=== PATIENT | female | born 1990 | race Caucasian/White ===

== ENCOUNTER 2022-09-22 10:56 | Outpatient (CLI) | payer OTHER | END 2022-09-22 11:48 | disposition home or self-care (01) | LOC: NST 10:56 | PROVIDERS: ATTEND Obstetrics & Gynecology Gynecology | DX: Z34.83 Encounter for supervision of other normal pregnancy, third trimester (principal) ==

== ENCOUNTER 2022-10-06 11:41 | Inpatient (IN) | payer OTHER ==
[~2022-10-06] VITALS: Ht 165.1 cm; Wt 77.1 kg
[2022-10-07] MEDS ORDERED: PRENATAL + DHA1 EAC1 PO (08:33)
== END 2022-10-09 12:53 | DRG 807 ==
LOC: LDR 10-07 06:45 → OB/GYN 10-07 13:00
PROVIDERS: ADMIT Obstetrics & Gynecology Gynecology; ATTEND Obstetrics & Gynecology Gynecology
PROC: 10E0XZZ Delivery of Products of Conception, External Approach (ICD-10-PCS; principal; 2022-10-07)
PROC: 4A1HXCZ Monitoring of Products of Conception, Cardiac Rate, External Approach (ICD-10-PCS; 2022-10-07)
DX: O36.5930 Maternal care for other known or suspected poor fetal growth, third trimester, not applicable or unspecified (principal); Z37.0 Single live birth; Z3A.38 38 weeks gestation of pregnancy; Z20.822 Contact with and (suspected) exposure to COVID-19

== ENCOUNTER 2025-03-31 13:28 | Outpatient (CLI) | payer OTHER ==
[~2025-03-31 13:28] MED LIST: PRENATAL + DHA1 EAC1 PO
== END 2025-03-31 14:54 | disposition home or self-care (01) ==
LOC: NST 13:28
PROVIDERS: ATTEND Obstetrics & Gynecology Gynecology
DX: Z34.83 Encounter for supervision of other normal pregnancy, third trimester (principal)

== ENCOUNTER 2025-04-15 13:45 | Outpatient (CLI) | payer OTHER | END 2025-04-15 14:53 | disposition home or self-care (01) | LOC: NST 13:45 | PROVIDERS: ATTEND Obstetrics & Gynecology Maternal & Fetal Medicine | DX: Z34.83 Encounter for supervision of other normal pregnancy, third trimester (principal) ==

== ENCOUNTER 2025-04-17 14:30 | Inpatient (IN) | payer OTHER ==
[~2025-04-17] VITALS: Ht 165.1 cm; Wt 73.0 kg
[2025-04-23] MEDS ORDERED: RINGERS SOLUTION,LACTATED 1,000 ML IV SCH (06:30)
[2025-04-23] MEDS ORDERED: AMPICILLIN SODIUM 2,000 MG VIAL IV ONE (06:30)
[2025-04-23] MEDS ORDERED: OXYTOCIN 500 ML IV ONE (07:30)
[2025-04-23 08:32] LABS: BASO % 0.2 % (0.1-1.2); EOS # 0.19 (0.04-0.54); EOS % 1.9 % (0.7-7.0); LYMPH # 1.90 (1.18-3.74); LYMPH % 19.3 % (19.3-53.1); MEAN PLATELET VOLUME 10.80 fl (9.4-12.4); MONO # 0.64 (0.24-0.82); MONO % 6.5 % (4.7-12.5); NEUT # 7.04 (1.56-6.13); NEUT % 71.8 % (34.0-71.1); RED CELL DISTRIBUTION WIDTH 13.3 % (11.6-14.4)
[2025-04-23 08:55] LABS: INR < 0.93
[2025-04-23] MEDS ORDERED: AMPICILLIN SODIUM 1,000 MG VIAL IV SCH (09:00)
[2025-04-23 09:31] LABS: ALT/SGPT 19.0 U/L (12-78); AST/SGOT 17.0 U/L (15-37); BILIRUBIN TOTAL 0.32 mg/dL (0.3-1.2); BUN CREA RATIO 15.0 (7.0-25.0); CREATININE SERUM 0.46 mg/dL (0.55-1.02); GFR 152.85; GLOBULINA 3.5 G/DL (2.4-3.5); GLUCOSE FASTING 79.0 mg/dL (65-100); OSMOLALITY SERUM 278.0 MOSM/KG (275-295)
[2025-04-23 11:21] VITALS: BP 147/87
[2025-04-23 15:15] VITALS: BP 139/81
[2025-04-23] MEDS ORDERED: CHLORHEXIDINE GLUCONATE 120 ML BOTTLE TOP ONE (16:30)
[2025-04-23] MEDS ORDERED: OXYTOCIN 1,000 ML IV SCH (16:30)
[2025-04-23] MEDS ORDERED: ERYTHROMYCIN BASE OPHT 1GM EACH TUBE OP ONE (16:45)
[2025-04-23] MEDS ORDERED: LIDOCAINE HCL 1% 10ML VIAL PERCUT ONE (16:45)
[2025-04-23] MEDS ORDERED: MORPHINE SULFATE 4 MG/ML CARTRIDGE IV ONE (16:45)
[2025-04-23] MEDS ORDERED: DOCUSATE SODIUM 100MG CAP PO SCH (17:00)
[2025-04-23 19:28] VITALS: BP 98/61
[2025-04-24 02:25] VITALS: BP 100/55
[2025-04-24 06:24] LABS: BASO % 0.2 % (0.1-1.2); EOS # 0.19 (0.04-0.54); EOS % 1.3 % (0.7-7.0); LYMPH # 1.87 (1.18-3.74); LYMPH % 12.8 % (19.3-53.1); MEAN PLATELET VOLUME 10.80 fl (9.4-12.4); MONO # 0.75 (0.24-0.82); MONO % 5.1 % (4.7-12.5); NEUT # 11.72 (1.56-6.13); NEUT % 80.3 % (34.0-71.1); RED CELL DISTRIBUTION WIDTH 13.1 % (11.6-14.4)
[2025-04-24 08:00] VITALS: BP 111/74
[2025-04-24 16:41] VITALS: BP 108/70
[2025-04-25 03:00] VITALS: BP 115/74
[2025-04-25 09:01] VITALS: BP 110/68
== END 2025-04-25 16:59 | disposition home or self-care (01) | DRG 807 ==
LOC: LDR 04-23 05:53 → OB/GYN 04-23 18:24
PROVIDERS: Obstetrics & Gynecology Gynecology; ADMIT Obstetrics & Gynecology Maternal & Fetal Medicine; ATTEND Obstetrics & Gynecology Maternal & Fetal Medicine
PROC: 10E0XZZ Delivery of Products of Conception, External Approach (ICD-10-PCS; principal; 2025-04-23)
PROC: 4A1HXCZ Monitoring of Products of Conception, Cardiac Rate, External Approach (ICD-10-PCS; 2025-04-23)
DX: O69.81X0 Labor and delivery complicated by cord around neck, without compression, not applicable or unspecified (principal); Z37.0 Single live birth; Z3A.39 39 weeks gestation of pregnancy